=== PATIENT | male | born 1990 | race Caucasian/White ===

== ENCOUNTER 2016-07-11 21:58 | Inpatient (IN) | payer BC, OTHER ==
[~2016-07-11] VITALS: Ht 172.7 cm; Wt 68.0 kg
[2016-07-12] VITALS: BP 105/56
--- NOTE | 2016-07-12 01:25 | NUR ---
ADMISSION NOTE: Patient is a 25 y.o male admitted at [facility] at approximately 0125am of 07/12/16 for medically supervised withdrawal from Opiate. Body search done and skin check performed at intake, no contraband found. Scab noted left hand. No bleeding noted. Pt is 58 tall and weighs 150 lbs in a standing scale. Pt is cooperative during assessment. Patient is oriented to floor unit and room. Patient follows a regular diet at home with no known food and drug allergies. Pt wishes to be full Code. Patient is alert & oriented x4, ambulatory with a steady gait. Speech is clear and audible. Patient appears moderately intoxicated Patient is cooperative during interview. No shortness of breath noted. Respiration even & unlabored. Abdomen soft & non-distended. Bowel sounds active in all four quadrants. No nausea/vomiting noted. Patient denies pain/discomfort. No hand tremors noted. Vitals upon admission: B/P 118/76, OH 97, Temp 98.1, RR 16, O2Sat 96%. Patient noted with past medical history of ADHD and fracture of right arm d/t a baseball injury(Dec 2014). Pt denies any thoughts of suicide in the past. Pt currently denies SI/HI. Pt has not provided urine for drug screen yet. Instructed that pt to remain in room restriction until pt can provide urine. Pt verbalized understanding. Substance use: 1. Heroin- Pt has been using since 20 years old. Pt uses Heroin IV with fentanyl 0.5-1.0 gram daily for 1 week. Last use was a few hours prior to admission 07/11/16 at 1900 at the amount of 0.5 gram. Treatment History: Pt has multiple detox treatment history. Pt unable to recall all of them. Last one was at [facility] in December 2015. Patient denies being hospitalized in the last 30 days. Patient reports his longest period of sobriety was for 15 1/2 months from October 2013 to January 2015. Patient reports symptoms when he does not use as chills, anxiety, goosebumps, sweating, headaches, stuffy nose. Patient smokes 20 cigarettes daily. Patient refused pneumonia vaccines, educated patient risk & benefits but still refused. Patient does not have a PCP. Fall & Seizure precautions are in place. All needs attended & met. Safety precautions are in place. Bed locked in lowest position. Both side rails padded & up. Call light within pt's reach. Informed Dr. Jordan of pts admission. Will continue to monitor patient.
[2016-07-12 01:30] VITALS: BP 118/76
[2016-07-12] MEDS ORDERED: LOPERAMIDE HCL 2 MG CAPSULE PO PRN ×2 (02:00)
[2016-07-12] MEDS ORDERED: DICYCLOMINE HCL 20 MG TABLET PO PRN (02:00)
[2016-07-12] MEDS ORDERED: MAG HYDROX/AL HYDROX/SIMETH 30 ML LIQUID UDC PO PRN (02:00)
[2016-07-12] MEDS ORDERED: ONDANSETRON ODT 4 MG TAB.RAPDIS SL PRN (02:00)
[2016-07-12] MEDS ORDERED: MAGNESIUM HYDROXIDE 30 ML LIQUID UDC PO PRN (02:00)
[2016-07-12] MEDS ORDERED: IBUPROFEN 400 MG TABLET PO PRN (02:00)
[2016-07-12] MEDS ORDERED: ACETAMINOPHEN 325 MG TABLET PO PRN (02:00)
[2016-07-12] MEDS ORDERED: BUPRENORPHINE HCL 2 MG TAB.SUBL SL PRN (02:00)
[2016-07-12 03:16] LABS: ALANINE AMINOTRANSFERASE 16 U/L (16-63); ALKALINE PHOSPHATASE 78 U/L (50-136); ASPARTATE AMINOTRANSFERASE 17 U/L (15-37); BILIRUBIN,TOTAL 0.2 mg/dL (0.2-1.0); CALCIUM 9.2 mg/dL (8.5-10.1); CHLORIDE 102 mmol/L (98-107); CREATININE 1.2 mg/dL (0.6-1.3); GFR 74 mL/min (>60); GLUCOSE 87 mg/dL (74-106); POTASSIUM 3.8 mmol/L (3.5-5.1); SODIUM SERUM 141 mmol/L (136-145); TOTAL PROTEIN, SERUM 7.6 g/dL (6.4-8.2); UREA NITROGEN, BLOOD 20 mg/dL (7-18)
[2016-07-12 03:18] LABS: ETHANOL < 3 MG/DL (0-0)
[2016-07-12 03:38] LABS: CARBON DIOXIDE 34 mmol/L (21-32)
[2016-07-12 03:58] LABS: BASOPHILS # (AUTO) 0.1 K/uL (0.0-0.2); BASOPHILS % (AUTO) 1.1 % (0.0-2.0); EOSINOPHILS % (AUTO) 0.3 % (0.0-7.0); HEMATOCRIT 45.6 % (40.0-50.0); HEMOGLOBIN 14.9 g/dL (14.0-18.0); LYMPHOCYTES # (AUTO) 1.9 K/uL (0.8-4.8); LYMPHOCYTES % (AUTO) 15.1 % (20.5-51.5); MEAN CORPUSCULAR HEMOGLOBIN 29.6 uug (27.0-31.0); MEAN CORPUSCULAR HGB CONC 33 g/dL (32.0-37.0); MEAN CORPUSCULAR VOLUME 90.5 fL (82.0-92.0); MONOCYTES % (AUTO) 8.4 % (0.0-11.0); NEUTROPHILS # (AUTO) 9.4 K/uL (1.8-8.9); NEUTROPHILS % (AUTO) 75.1 % (38.5-71.5); PLATELET COUNT (AUTO) 267 K/uL (150-450); RED BLOOD CELL COUNT(AUTO) 5.04 MIL/uL (4.70-6.10); RED CELL DISTRIBUTION WIDTH 12.1 % (11.5-14.5); WHITE BLOOD COUNT (AUTO) 12.4 K/uL (4.0-11.2)
[2016-07-12 04:00] VITALS: BP 129/67
[2016-07-12] MEDS ORDERED: PROP20TA7 PO (04:52)
[2016-07-12] MEDS ORDERED: GABA800T2 PO (04:52)
[2016-07-12] MEDS ORDERED: LISD30CA3 PO (04:52)
--- NOTE | 2016-07-12 07:08 | NUR ---
END OF SHIFT NOTE: Patient is a 25 y/o male admitted this morning 07/12/16 at 0125am for Opiate dependence. Patient reported using Heroin IV 0.5-1.0 gram daily for 1 week. Patient with medical history of ADHD and past ORIF surgery of right arm d/t a baseball injury(Dec 2015). Patient is on a regular diet with no known food and drug allergies. Full Code status. No history of seizure. Fall precautions noted. Patient noted with scab on left hand. Patient has no taper yet. Initial COWS is 2. No PRN medications given to patient. Patient still not able to provide Urine for drug screen during admission. Will follow-up in Am. Patient is stable and vitals remains WNL. Pt was having trouble sleeping and was not able to sleep at all during my shift. Pt consumed 1500ml of fluids. Pt has not voided yet and no BM. All needs attended & met. Safety precautions are in place. Will endorse pt to day shift nurse.
[2016-07-12 07:26] LABS: HIV-1 p24 ANTIGEN NON REACTIVE (NONREACTIVE); HIV-1/2 ANTIBODY NON REACTIVE (NONREACTIVE)
--- NOTE | 2016-07-12 08:00 | NUR ---
START OF SHIFT Pt 25 y/o male admitted for opiate dependence. Pt received in room on bed with eyes closed resting but easily arousable to name. Pt did not wanted to be disturbed at this time. Respirations even and unlabored. Skin warm and dry to touch. It was reported that pt slept for 1 hour last night. Reminded pt to provide urine for UDS. All supervisor cartography aware. Pt refused vital signs thsi morning. Will come back to reaccess. Bed on lowest position with side rails x2 up for safety. Call light within reach. No distress noted at this time.
[2016-07-12] MEDS ORDERED: TUBERCULIN,PURIF.PROT.DERIV. 5 TU/0.1 ML TEST ID ONE ×2 (09:00)
[2016-07-12] MEDS: MULTIVITAMINS,THERAPEUTIC TABLET PO SCH (09:00)
--- NOTE | 2016-07-12 10:00 | NUR ---
NSG ENTRY Pt observed in room with eyes clsoed resting, but easily arousable to name. Pt reminded of urine collection and made aware. No distress noted at this time. Bed on lowest position with side rails x2 up for safety. Call light within reach. No distress noted at this time.
[2016-07-12 12:00] VITALS: BP 116/52
[2016-07-12 16:00] VITALS: BP 126/82
[2016-07-12] MEDS ORDERED: ASPIRIN/ACETAMINOPHEN/CAFFEINE TABLET PO PRN (17:30)
--- NOTE | 2016-07-12 18:23 | NUR ---
END OF SHIFT Pt 25 y/o male admitted for opiate dependence. Pt alert and orietned to name, place, and time. Perrla. Respirations even and unlabored. Skin warm and dry to touch. Reminded pt to provide urine for UDS throughout the day. All fourdrinier tender aware. Still awaiting for UA. Pt was in bed throughout the day, and when pt got up at dinner time, he urinated in the restroom, but forgot to get staff to have urine collected. Will come back to reaccess. Bed on lowest position with side rails x2 up for safety. Call light within reach. No distress noted at this time.
--- NOTE | 2016-07-12 19:30 | NUR ---
START OF SHIFT NOTE: Patient is a 25 y/o male admitted this morning 07/12/16 at 0125am for Opiate dependence. Patient reported using Heroin IV 0.5-1.0 gram daily for 1 week. Patient with medical history of ADHD and past ORIF surgery of right arm d/t a baseball injury(Dec 2015). Patient is on a regular diet with no known food and drug allergies. Full Code status. No history of seizure. Fall precautions noted. Patient noted with scab on left hand. Patient has no taper yet. PRN medications available for withdrawal symptoms. Patient is alert & oriented x4. No shortness of breath noted. Respiration even & unlabored. Abdomen soft & non-distended. Bowel sounds active in all four quadrants. No nausea/vomiting noted. Patient complains of sweating, chill, stomach cramps, runny nose & anxiety. Patient appears anxious. 6/10 body aches noted. Patient also noted with piloerection of the skin. Pateint is stable. Last COWS is 4. Pt was given PRN Excedrin for headache during day shift. Pt ahs been sleeping during the day. All needs attended. Safety precautions are in place. Bed locked in lowest position. Both side rails up. Call light within pt's reach. Will continue to monitor patient.
[2016-07-12 20:00] VITALS: BP 108/70
[2016-07-12] MEDS: CLONIDINE HCL 0.1 MG TABLET PO PRN (20:09)
[2016-07-12] MEDS: diphenhydrAMINE 50 MG CAPSULE PO PRN (20:09)
[2016-07-12] MEDS: METHOCARBAMOL 750 MG TABLET PO PRN (20:09)
[2016-07-12] MEDS: HYDROXYZINE PAMOATE 25 MG CAPSULE PO PRN (20:09)
--- NOTE | 2016-07-12 20:09 | NUR ---
PRN administered Patient complains of sweating, chills, 6/10 body aches & anxiety. Patient appears anxious and restless. Pt also requested for medication to help him sleep. PRN Clonidine, Vistaril, Robaxin & Benadryl given as ordered. will reassess for effectiveness of medication
[2016-07-12 20:41] LABS: *AMPHETAMINE, URINE NEGATIVE (NEGATIVE); *BARBITURATE, URINE NEGATIVE (NEGATIVE); *CANNABINOID, URINE NEGATIVE (NEGATIVE); *COCCAINE, URINE NEGATIVE (NEGATIVE); *OPIATE, URINE POSITIVE (NEGATIVE); *PHENCYCLIDINE SCREEN,URINE NEGATIVE (NEGATIVE)
--- NOTE | 2016-07-12 21:09 | NUR ---
PRN Reassessment PRN medication effective. Patient verbalized relief. Pt shows no s/s of distress. No shortness of breath noted. Respiration even & unlabored. Will continue to monitor patient.
[2016-07-13] VITALS: BP 105/56
--- NOTE | 2016-07-13 04:00 | NUR ---
Vitals/Cows deferred Patient refused vitals at this time. Patient asleep in bed and appears comfortable. No s/s of distress noted. respiration even & unlabored. Safety precautions are in place. Will continue to monitor patient.
--- NOTE | 2016-07-13 07:19 | NUR ---
END OF SHIFT NOTE: Patient is a 25 y/o male admitted this morning 07/12/16 at 0125am for Opiate dependence. Patient reported using Heroin IV 0.5-1.0 gram daily for 1 week. Patient with medical history of ADHD and past ORIF surgery of right arm d/t a baseball injury(Dec 2015). Patient is on a regular diet with no known food and drug allergies. Full Code status. No history of seizure. Fall precautions noted. Patient noted with scab on left hand. Patient has no taper yet. Last COWS is 10. Pt was given PRN Robaxin, Vistaril, Benadryl & Clonidine and were effective. Patient remained stable and vitals remains WNL. Pt slept for 9 hours. Patient consumed 550 ml of fluids. Pt voided 1x and no BM. All needs attended & met. Safety precautions are in place. Will endorse pt to day shift nurse.
[2016-07-13 08:07] VITALS: BP 122/65
--- NOTE | 2016-07-13 08:45 | NUR ---
START OF SHIFT/COWS DEFERRED ATTEMPTED TO ASSESS PT AND PT WOULD NOT OPEN EYES AND STATED HE JUST WANTED TO SLEEP. PT REFUSED ASSESSMENT. PT AWOKE TO TAKE MULTIVITAMIN BUT CLOSED EYES AND WENT RIGHT BACK TO SLEEP. NO EYE CONTACT MADE. PT REFUSED TO ANSWER ANY ASSESSMENT QUESTIONS. COWS DEFERRED. PT IN STABLE CONDITION WITH RR EVEN AND UNLABORED. BED IN LOWEST POSITION WITH CALL PAYNE IN REACH. WILL ATTEMPT TO ASSESS PT AGAIN LATER THIS AM.
[2016-07-13] MEDS ORDERED: TUBERCULIN,PURIF.PROT.DERIV. 5 TU/0.1 ML TEST ID ONE (09:00)
[2016-07-13] MEDS: MULTIVITAMINS,THERAPEUTIC TABLET PO SCH (09:33)
--- NOTE | 2016-07-13 11:25 | NUR ---
PRN MEDS PRN CLONIDINE, VISTARIL, ROBAXIN GIVEN FOR NEW ONSET BODY ACHES, ANXIETY, AND CHILLS. WILL MONITOR EFFECTIVENESS.
[2016-07-13] MEDS: METHOCARBAMOL 750 MG TABLET PO PRN ×2 (11:26→21:26)
[2016-07-13] MEDS: HYDROXYZINE PAMOATE 25 MG CAPSULE PO PRN ×2 (11:26→21:25)
[2016-07-13] MEDS: CLONIDINE HCL 0.1 MG TABLET PO PRN (11:27)
--- NOTE | 2016-07-13 11:59 | NUR ---
PRN MEDS MILDLY EFFECTIVE. PT STATES HE FEELS A LITTLE BETTER. WILL CONTINUE TO MONITOR
[2016-07-13 12:00] VITALS: BP 106/71
[2016-07-13] MEDS ORDERED: PROP20TA7 PO (14:53)
[2016-07-13] MEDS ORDERED: GABA800T2 PO (14:53)
[2016-07-13] MEDS ORDERED: LISD30CA3 PO (14:53)
[2016-07-13 16:00] VITALS: BP 103/58
--- NOTE | 2016-07-13 16:55 | NUR ---
COWS DEFERRED. PT SLEEPING IN BED. RR EVEN AND UNLABORED. BED IN LOWEST POSITION WITH CALL PAYNE IN REACH.
[2016-07-13] MEDS ORDERED: Medication Not On Formulary EA (Gabapentin 1 TAB) PO SCH (18:30)
--- NOTE | 2016-07-13 18:50 | NUR ---
END OF SHIFT PT CONTINUES ON OBSERVATION. PRN CLONIDINE, VISTARIL, AND ROBAXIN GIVEN TO PT FOR S/S OF W/D WITH EFFECTIVENESS. LAST COWS 6. PT RESTING IN BED MOST OF DAY AND STATES HE IS FEELING FATIGUED AND ANXIOUS. ENCOURAGED PT TO INFORM NURSING STAFF PRNS ARE AVAILABLE FOR S/S OF W/D. PT CURRENTLY SLEEPING WITH RR EVEN AND UNLABORED. BED IN LOWEST POSITION WITH CALL PAYNE IN REACH. ALL NEEDS MET. WILL PASS REPORT TO ONCOMING NURSE.
[2016-07-13] MEDS: GABAPENTIN 400 MG CAPSULE PO SCH (19:01)
--- NOTE | 2016-07-13 19:25 | NUR ---
START OF SHIFT NOTE Pt is 25 y/o male admitted for Heroin dependence(1 week relapse) . Pt has NKA but reported a PMH of ADHD, right arm fracture d/t baseball injury(ORIF sx). Per day shift nurse pt is not on a scheduled taper at this time, but has PRN medications available for any discomfort. Pt received Robaxin 750 mg PO PRN and Vistaril 50 mg PO PRN during the day shift. Last COW: 6 (1600). At this time pt is calm, cooperative, and compliant with plan of care. Pt denies any pain/discomfort at this time. Pt is encouraged to notify staff of any changes in condition or of any concerns. Pt verbalized an understanding. All safety measures in place; side rails up x2, bed locked and in low position, and call light within reach. Will continue to monitor.
[2016-07-13 20:00] VITALS: BP 106/64
--- NOTE | 2016-07-13 21:25 | NUR ---
ROBAXIN, VISTARIL, AND BENADRYL PRN ADMINISTRATION Pt stated " Can I get some more Vistaril and Robaxin. My muscle pain is coming back and I'm a little anxious. Can I have something for sleep too?" Robaxin 750 mg PO PRN, Vistaril 50 mg PO PRN , and Benadryl 50 mg PO PRN was given. Pt was encouraged to notify staff of any changes in condition or of any concerns. Pt verbalized an understanding. All safety measures in place. Will monitor for effectiveness.
[2016-07-13] MEDS: diphenhydrAMINE 50 MG CAPSULE PO PRN (21:26)
--- NOTE | 2016-07-13 22:30 | NUR ---
ROBAXIN, VISTARIL, AND BENADRYL PRN REASSESSMENT Pt is asleep in bed with no signs of discomfort/distress noted. Pt's breathing is even and unlabored. Respirations are 16 breaths per minute. PRNs effective. All safety measures in place. Will continue to monitor.
--- NOTE | 2016-07-14 | NUR ---
COW AND VITALS REFUSED. Pt refused to be assessed and have vitals taken at this time. Pt was encouraged x 3 with risks and benefits explained, but the pt still declined. All safety measures in place. Will continue to monitor. Addendum: 07/14/16 at 0544 by DANIEL HENDRICKS LVN Amended: Links added.
--- NOTE | 2016-07-14 04:00 | NUR ---
COW AND VITALS REFUSED Pt refused to be assessed and have vitals taken at this time. Pt was encouraged x 3 with risks and benefits explained, but the pt still declined. All safety measures in place. Will continue to monitor. Addendum: 07/14/16 at 0547 by DANIEL HENDRICKS LVN Amended: Links added.
--- NOTE | 2016-07-14 07:04 | NUR ---
END OF SHIFT NOTE Pt is 25 y/o male admitted for Heroin dependence(1 week relapse) . Pt has NKA but reported a PMH of ADHD, right arm fracture d/t baseball injury(ORIF sx). Pt is not on a scheduled taper at this time, but has PRN medications available for any discomfort. Pt received Robaxin 750 mg PO PRN, Vistaril 50 mg PO PRN, and Benadryl 50 mg PO PRN during the shift. Pt slept for a total of 8 hours. Last COW: 5 (1999). All safety measures in place; side rails up x2, bed locked and in low position, and call light within reach. Endorsed to the oncoming nurse.
[2016-07-14 08:00] VITALS: BP 103/64
--- NOTE | 2016-07-14 08:00 | NUR ---
START OF SHIFT: RECEIVED PT WITH GUARDED AFFECT ANXIOUS MOOD. HE REPORTS MUSCLE ACHES,RESTLESSNESS,ANXIETY AND IRRITABILITY AND WANTS TOP LEAVE. MEDICATED PT WITH PRN CLONIDINE , ROBAXIN, AND VISTARIL AND ASKED HIM TO STAY. INCLUDED THERAPIST AND OTHER STAFF MEMBERS TO INTERVENE. WILL MONITOR EFFECTIVENESS OF INTERVENTION AND PRN MEDS. WILL CONTINUE TO PROVIDE SAFE AND SUPPORTIVE ENVIRONMENT.
[2016-07-14] MEDS: GABAPENTIN 400 MG CAPSULE PO SCH (08:56)
[2016-07-14] MEDS: HYDROXYZINE PAMOATE 25 MG CAPSULE PO PRN (08:56)
[2016-07-14] MEDS: MULTIVITAMINS,THERAPEUTIC TABLET PO SCH (08:56)
[2016-07-14 08:57] VITALS: BP 103/64
[2016-07-14] MEDS: METHOCARBAMOL 750 MG TABLET PO PRN (08:57)
[2016-07-14] MEDS: CLONIDINE HCL 0.1 MG TABLET PO PRN (08:57)
--- NOTE | 2016-07-14 11:15 | NUR ---
DISCHARGE AMA: PT WAS DETERMINED TO LEAVE AMA DESPITE INTERVENTION BY MULTIPLE STAFF MEMBERS. PT EXPRESSED VERBAL UNDERSTANDING THAT HE WAS LEAVING WITHOUT MEDICAL CLEARANCE FROM MD. HE DENIED S/I AND H/I. A RESOURCE LIST WAS GIVEN TO PT. HVAC OPERATIONS TECHNICIAN ESCORTED PT OUT OF UNIT AT 1111.
[2016-07-15 03:09] LABS: HEPATITIS B CORE AB, IgM Negative (Negative); HEPATITIS B SURFACE AG Negative (Negative)
== END 2016-07-14 11:11 | disposition left against medical advice (07) | DRG 894 ==
LOC: SRC 07-12 00:53
PROVIDERS: ADMIT Internal Medicine; ATTEND Internal Medicine
PROC: HZ2ZZZZ Detoxification Services for Substance Abuse Treatment (ICD-10-PCS; principal; 2016-07-12)
PROC: HZ31ZZZ Individual Counseling for Substance Abuse Treatment, Behavioral (ICD-10-PCS; 2016-07-14)
DX: F11.23 Opioid dependence with withdrawal (principal); Z59.0 Homelessness; F17.210 Nicotine dependence, cigarettes, uncomplicated; F90.9 Attention-deficit hyperactivity disorder, unspecified type
CPT/HCPCS: 36415; 80307; 80361; 83735; 85025; 86705; 87340; 87806; A4663; G6040-TC; Q0163

== ENCOUNTER 2017-04-17 20:49 | Inpatient (IN) | payer BC, OTHER ==
[~2017-04-17] VITALS: Ht 170.2 cm; Wt 63.5 kg
[~2017-04-17 20:49] MED LIST: GABA800T2 PO; LISD30CA2 PO; PROP20TA7 PO
[2017-04-17] MEDS ORDERED: MAGNESIUM HYDROXIDE 30 ML LIQUID UDC PO PRN (21:45)
[2017-04-17] MEDS ORDERED: METHOCARBAMOL 750 MG TABLET PO PRN (21:45)
[2017-04-17] MEDS ORDERED: MAG HYDROX/AL HYDROX/SIMETH 30 ML LIQUID UDC PO PRN (21:45)
[2017-04-17] MEDS ORDERED: MIRALAX 17 GM POWD.PACK PO PRN (21:45)
[2017-04-17] MEDS ORDERED: diphenhydrAMINE 50 MG CAPSULE PO PRN (21:45)
[2017-04-17] MEDS ORDERED: ACETAMINOPHEN 325 MG TABLET PO PRN (21:45)
[2017-04-17] MEDS ORDERED: LOPERAMIDE HCL 2 MG CAPSULE PO PRN ×2 (21:45)
[2017-04-17] MEDS ORDERED: ONDANSETRON 4 MG/2 ML VIAL IM PRN (21:45)
[2017-04-17] MEDS ORDERED: BUPRENORPHINE HCL 2 MG TAB.SUBL SL PRN (21:45)
[2017-04-17] MEDS ORDERED: ONDANSETRON ODT 4 MG TAB.RAPDIS SL PRN (21:45)
[2017-04-17] MEDS ORDERED: LORAZEPAM 2 MG/1 ML VIAL IM PRN (23:45)
[2017-04-17] MEDS ORDERED: DIAZEPAM 10 MG TABLET PO PRN ×2 (23:45)
[2017-04-17] MEDS ORDERED: DIAZEPAM 5 MG TABLET PO PRN (23:45)
[2017-04-17] MEDS: IBUPROFEN 600 MG TABLET PO PRN (23:59)
[2017-04-18] VITALS: BP 115/66
[2017-04-18] MEDS ORDERED: DIAZEPAM 5 MG TABLET ONE (00:02)
[2017-04-18] MEDS ORDERED: ONDANSETRON ODT 4 MG TAB.RAPDIS ONE (00:03)
[2017-04-18] MEDS ORDERED: IBUPROFEN 600 MG TABLET ONE (00:03)
[2017-04-18 01:03] LABS: *AMPHETAMINE, URINE NEGATIVE (NEGATIVE); *BARBITURATE, URINE NEGATIVE (NEGATIVE); *CANNABINOID, URINE POSITIVE (NEGATIVE); *COCCAINE, URINE NEGATIVE (NEGATIVE); *OPIATE, URINE POSITIVE (NEGATIVE); *PHENCYCLIDINE SCREEN,URINE NEGATIVE (NEGATIVE)
[2017-04-18 04:00] VITALS: BP 121/76
[2017-04-18 08:00] VITALS: BP 128/70
[2017-04-18 08:45] LABS: BASOPHILS % (AUTO) 0.4 % (0.0-2.0); EOSINOPHILS # (AUTO) 0.2 K/uL (0.0-0.7); EOSINOPHILS % (AUTO) 2.8 % (0.0-7.0); HEMATOCRIT 40.6 % (36.7-47.1); HEMOGLOBIN 13.9 g/dL (12.5-16.3); LYMPHOCYTES # (AUTO) 2.4 K/uL (20.0-40.0); LYMPHOCYTES % (AUTO) 33.6 % (20.5-51.5); MEAN CORPUSCULAR HEMOGLOBIN 31.2 uug (23.8-33.4); MEAN CORPUSCULAR HGB CONC 34 g/dL (32.5-36.3); MEAN CORPUSCULAR VOLUME 91.2 fL (73.0-96.2); MONOCYTES # (AUTO) 0.7 K/uL (2.0-10.0); MONOCYTES % (AUTO) 9.8 % (0.0-11.0); NEUTROPHILS # (AUTO) 3.9 K/uL (1.8-8.9); NEUTROPHILS % (AUTO) 53.4 % (38.5-71.5); PLATELET COUNT (AUTO) 249 K/uL (152-348); RED BLOOD CELL COUNT(AUTO) 4.46 MIL/uL (4.06-5.63); WHITE BLOOD COUNT (AUTO) 7.2 K/uL (3.6-10.2)
[2017-04-18 08:55] LABS: ETHANOL < 3 MG/DL (0-0)
[2017-04-18] MEDS ORDERED: TUBERCULIN,PURIF.PROT.DERIV. 5 TU/0.1 ML TEST ID ONE (09:00)
[2017-04-18] MEDS: BUPRENORPHINE HCL 2 MG TAB.SUBL SL SCH ×4 (09:00→21:00)
[2017-04-18 09:02] LABS: ALANINE AMINOTRANSFERASE 97 U/L (16-63); ALKALINE PHOSPHATASE 79 U/L (50-136); ASPARTATE AMINOTRANSFERASE 37 U/L (15-37); BILIRUBIN,TOTAL 0.3 mg/dL (0.2-1.0); CARBON DIOXIDE 31 mmol/L (21-32); CHLORIDE 105 mmol/L (98-107); GLUCOSE 94 mg/dL (74-106); MAGNESIUM 1.9 mg/dL (1.8-2.4); POTASSIUM 4.1 mmol/L (3.5-5.1); TOTAL PROTEIN, SERUM 6.8 g/dL (6.4-8.2); UREA NITROGEN, BLOOD 10 mg/dL (7-18)
[2017-04-18] MEDS: DIAZEPAM 10 MG TABLET PO SCH ×4 (09:25→20:54)
[2017-04-18] MEDS: GABAPENTIN 400 MG CAPSULE PO SCH ×4 (09:25→20:54)
[2017-04-18] MEDS: SULFAMETH/TRIMETH 800/160 MG TABLET PO SCH ×2 (09:25→20:53)
[2017-04-18 12:00] VITALS: BP 120/75
[2017-04-18 16:00] VITALS: BP 110/72
[2017-04-18 20:00] VITALS: BP 116/66
[2017-04-18] MEDS: IBUPROFEN 600 MG TABLET PO PRN (20:54)
[2017-04-19] VITALS: BP 101/56
[2017-04-19 04:00] VITALS: BP 98/61
[2017-04-19] MEDS: GABAPENTIN 400 MG CAPSULE PO SCH ×4 (08:01→20:17)
[2017-04-19] MEDS: BUPRENORPHINE HCL 2 MG TAB.SUBL SL SCH ×3 (08:02→21:00)
[2017-04-19] MEDS: DIAZEPAM 10 MG TABLET PO SCH ×3 (08:02→20:18)
[2017-04-19] MEDS: SULFAMETH/TRIMETH 800/160 MG TABLET PO SCH ×2 (08:02→20:18)
[2017-04-19 08:07] VITALS: BP 112/61
[2017-04-19 10:10] LABS: HEPATITIS B SURFACE AG Negative (Negative)
[2017-04-19] MEDS ORDERED: KETOROLAC TROMETHAMINE 30 MG INJ IM PRN (11:45)
[2017-04-19] MEDS: CLONIDINE HCL 0.1 MG TABLET PO PRN ×2 (12:09→18:21)
[2017-04-19] MEDS ORDERED: BUPRENORPHINE HCL 2 MG TAB.SUBL SL ONE ×2 (14:30→21:15)
[2017-04-19 15:31] VITALS: BP 108/67
[2017-04-19 17:37] VITALS: BP 100/60
[2017-04-19 20:00] VITALS: BP 102/62
[2017-04-19] MEDS: BACLOFEN 10 MG TABLET PO SCH (20:17)
[2017-04-19] MEDS: CLONIDINE HCL 0.1 MG TABLET PO SCH (20:20)
[2017-04-19] MEDS: DOXEPIN 100 MG CAPSULE PO PRN (23:26)
[2017-04-20] VITALS: BP 90/43
[2017-04-20 04:00] VITALS: BP 90/51
[2017-04-20 08:00] VITALS: BP 98/52
[2017-04-20] MEDS: CLONIDINE HCL 0.1 MG TABLET PO SCH ×2 (09:00→20:42)
[2017-04-20] MEDS ORDERED: BUPRENORPHINE HCL 2 MG TAB.SUBL SL SCH (09:00)
[2017-04-20] MEDS: DIAZEPAM 5 MG TABLET PO SCH ×4 (09:16→20:42)
[2017-04-20] MEDS: GABAPENTIN 400 MG CAPSULE PO SCH ×4 (09:16→20:42)
[2017-04-20] MEDS: SULFAMETH/TRIMETH 800/160 MG TABLET PO SCH ×2 (09:16→20:42)
[2017-04-20] MEDS: BACLOFEN 10 MG TABLET PO SCH ×3 (09:17→20:41)
[2017-04-20 12:00] VITALS: BP 110/62
[2017-04-20] MEDS: CLONIDINE HCL 0.1 MG TABLET PO PRN (12:59)
[2017-04-20 16:00] VITALS: BP 107/64
[2017-04-20] MEDS: BUPRENORPHINE HCL 2 MG TAB.SUBL SL SCH ×2 (16:56→20:42)
[2017-04-20] MEDS ORDERED: LIDOCAINE 1%-EPI 1:100,000 20 ML VIAL TP ONE (19:15)
[2017-04-20] MEDS ORDERED: LIDOCAINE 1% 30 ML VIAL INJ ONE (19:30)
[2017-04-20 20:00] VITALS: BP 118/78
[2017-04-21] VITALS: BP 90/42
[2017-04-21 08:35] VITALS: BP 112/65
[2017-04-21] MEDS: SULFAMETH/TRIMETH 800/160 MG TABLET PO SCH ×2 (08:53→20:33)
[2017-04-21] MEDS: BUPRENORPHINE HCL 2 MG TAB.SUBL SL SCH ×3 (08:54→20:34)
[2017-04-21] MEDS: DIAZEPAM 5 MG TABLET PO SCH ×3 (08:54→20:33)
[2017-04-21] MEDS: BACLOFEN 10 MG TABLET PO SCH ×3 (08:54→20:33)
[2017-04-21] MEDS: GABAPENTIN 400 MG CAPSULE PO SCH ×4 (08:54→20:33)
[2017-04-21] MEDS: CLONIDINE HCL 0.1 MG TABLET PO SCH ×2 (08:54→20:33)
[2017-04-21] MEDS ORDERED: DIAZEPAM 5 MG TABLET PO ONE (12:00)
[2017-04-21 12:20] VITALS: BP 113/71
[2017-04-21] MEDS: CLONIDINE HCL 0.1 MG TABLET PO PRN (14:30)
[2017-04-21 16:50] VITALS: BP 89/49
[2017-04-21 20:10] VITALS: BP 122/78
[2017-04-21] MEDS: DOXEPIN 100 MG CAPSULE PO PRN (23:09)
[2017-04-22 00:45] VITALS: BP 127/79
[2017-04-22 04:07] VITALS: BP 116/72
[2017-04-22 08:36] VITALS: BP 96/60
[2017-04-22] MEDS: BACLOFEN 10 MG TABLET PO SCH ×3 (09:44→20:21)
[2017-04-22] MEDS: GABAPENTIN 400 MG CAPSULE PO SCH ×4 (09:44→20:21)
[2017-04-22] MEDS: CLONIDINE HCL 0.1 MG TABLET PO SCH ×2 (09:44→20:21)
[2017-04-22] MEDS: SULFAMETH/TRIMETH 800/160 MG TABLET PO SCH ×2 (09:44→20:21)
[2017-04-22] MEDS: DIAZEPAM 5 MG TABLET PO SCH ×2 (09:44→20:21)
[2017-04-22] MEDS: BUPRENORPHINE HCL 2 MG TAB.SUBL SL SCH ×2 (09:45→20:21)
[2017-04-22 12:28] VITALS: BP 112/61
[2017-04-22] MEDS: CLONIDINE HCL 0.1 MG TABLET PO PRN (15:23)
[2017-04-22 16:37] VITALS: BP 91/55
[2017-04-22 20:20] VITALS: BP 112/72
[2017-04-22] MEDS: DOXEPIN 100 MG CAPSULE PO PRN (23:12)
[2017-04-23 00:51] VITALS: BP 127/79
[2017-04-23 04:40] VITALS: BP 115/71
[2017-04-23 08:56] VITALS: BP 92/54
[2017-04-23] MEDS ORDERED: DIAZEPAM 5 MG TABLET PO SCH (09:00)
[2017-04-23] MEDS: CLONIDINE HCL 0.1 MG TABLET PO SCH (09:00)
[2017-04-23] MEDS ORDERED: BUPRENORPHINE HCL 2 MG TAB.SUBL SL SCH (09:00)
[2017-04-23] MEDS: BACLOFEN 10 MG TABLET PO SCH (09:05)
[2017-04-23] MEDS: GABAPENTIN 400 MG CAPSULE PO SCH ×2 (09:05→13:23)
[2017-04-23] MEDS: CLONIDINE HCL 0.1 MG TABLET PO PRN (10:25)
[2017-04-23 12:43] VITALS: BP 112/71
== END 2017-04-23 15:33 | disposition left against medical advice (07) | DRG 894 ==
LOC: SRC 20:49
PROVIDERS: ADMIT Internal Medicine; ATTEND Internal Medicine
PROC: HZ2ZZZZ Detoxification Services for Substance Abuse Treatment (ICD-10-PCS; principal; 2017-04-17)
PROC: HZ31ZZZ Individual Counseling for Substance Abuse Treatment, Behavioral (ICD-10-PCS; 2017-04-20)
PROC: 0H9BXZZ Drainage of Right Upper Arm Skin, External Approach (ICD-10-PCS; 2017-04-20)
PROC: HZ41ZZZ Group Counseling for Substance Abuse Treatment, Behavioral (ICD-10-PCS; 2017-04-21)
DX: F13.230 Sedative, hypnotic or anxiolytic dependence with withdrawal, uncomplicated (principal); B19.20 Unspecified viral hepatitis C without hepatic coma; L02.413 Cutaneous abscess of right upper limb; F17.210 Nicotine dependence, cigarettes, uncomplicated; F11.23 Opioid dependence with withdrawal; S41.141S Puncture wound with foreign body of right upper arm, sequela; X78.8XXS Intentional self-harm by other sharp object, sequela; Z81.1 Family history of alcohol abuse and dependence; Z91.89 Other specified personal risk factors, not elsewhere classified; F41.9 Anxiety disorder, unspecified; F90.9 Attention-deficit hyperactivity disorder, unspecified type; G44.009 Cluster headache syndrome, unspecified, not intractable
CPT/HCPCS: 36415; 70030-TC; 80307; 80346; 80349; 80361; 83735; 85025; 86592; 86705; 86803; 87070; 87077; 87340; 87806; A4663; G0480; J1885; J2001; J3490; J8499; Q0162

== ENCOUNTER 2017-05-10 14:16 | Inpatient (IN) | payer BC, OTHER ==
[~2017-05-10] VITALS: Ht 172.7 cm; Wt 61.7 kg
[~2017-05-10 14:16] MED LIST changes: -GABA800T2 PO; -LISD30CA2 PO
--- NOTE | 2017-05-10 20:35 | NUR ---
Pre admission note Pt seen in intake office. Pt appears intoxicated upon admission. V/S WNL. No s/s of distress noted at this time. Respirations even and unlabored. Policies on medication disposal explained to and understood by patient. Will admit Pt to unit. Will continue to monitor.
--- NOTE | 2017-05-10 21:05 | NUR ---
Admission note Pt is a 26 yo male, A+Ox4, presenting to [facility] for Opiate/Benzo dependence. Pt has NKA, is on Full code status, and on Regular diet. Pt is 5'8" in height and 136 LBS in weight. Pt is on Fall and Seizure precautions. Pt has HX of Left arm SX, right Fore arm I&D to abscess, and insomnia. Pt has family HX of substance abuse from brother. Pt has no primary care provider. Pt has been using Heroin IV for 7 years (2 weeks currently), has reached a level of 1gm/daily, and last dose was 0.25gm on 05-10-17 @1200. Pt has been taking Xanax PO for 9 years (2weeks currently), has reached a level of 6mg-8mg/daily, and last dose was 2mg on 05-10-17 @0200. Pt has been taking Doxepin 100mg HS PRN as a home medication but has not taken any doses for the past 2 weeks. Pt's most recent detox/Rehab was for 7 days @ [facility] in 04/2017. Pt continued sobriety for 7 additional days. This was the pt's last time sober. Pt has been a cigarette smoker for 9 years and has reached a level of 20/daily. Pt appears intoxicated upon admission. V/S WNL. No s/s of distress noted at this time. Respirations even and unlabored. Will continue to monitor.
[2017-05-10] MEDS ORDERED: MIRALAX 17 GM POWD.PACK PO PRN (21:30)
[2017-05-10] MEDS ORDERED: METHOCARBAMOL 750 MG TABLET PO PRN (21:30)
[2017-05-10] MEDS ORDERED: ACETAMINOPHEN 325 MG TABLET PO PRN (21:30)
[2017-05-10] MEDS ORDERED: DICYCLOMINE HCL 20 MG TABLET PO PRN (21:30)
[2017-05-10] MEDS ORDERED: NICOTINE POLACRILEX 4 MG GUM-PK OF TEN BC PRN (21:30)
[2017-05-10] MEDS ORDERED: NICOTINE 14 MG/24HR PATCH TD PRN (21:30)
[2017-05-10] MEDS ORDERED: LOPERAMIDE HCL 2 MG CAPSULE PO PRN ×2 (21:30)
[2017-05-10] MEDS ORDERED: ONDANSETRON 4 MG/2 ML VIAL IM PRN (21:30)
[2017-05-10] MEDS ORDERED: diphenhydrAMINE 50 MG CAPSULE PO PRN (21:30)
[2017-05-10] MEDS ORDERED: MAG HYDROX/AL HYDROX/SIMETH 30 ML LIQUID UDC PO PRN (21:30)
[2017-05-10] MEDS ORDERED: DOCUSATE SODIUM 250 MG CAPSULE PO PRN (21:30)
[2017-05-10] MEDS ORDERED: BUPRENORPHINE HCL 2 MG TAB.SUBL SL PRN (21:30)
[2017-05-10] MEDS ORDERED: ONDANSETRON ODT 4 MG TAB.RAPDIS SL PRN (21:30)
[2017-05-10] MEDS ORDERED: IBUPROFEN 600 MG TABLET PO PRN (21:30)
[2017-05-10] MEDS ORDERED: MAGNESIUM HYDROXIDE 30 ML LIQUID UDC PO PRN (21:30)
[2017-05-10 22:10] VITALS: BP 113/72
[2017-05-10] MEDS ORDERED: DIAZEPAM 10 MG TABLET PO SCH (22:30)
[2017-05-10 22:59] LABS: BASOPHILS % (AUTO) 0.5 % (0.0-2.0); EOSINOPHILS # (AUTO) 0.1 K/uL (0.0-0.7); EOSINOPHILS % (AUTO) 1.4 % (0.0-7.0); HEMATOCRIT 42.5 % (36.7-47.1); HEMOGLOBIN 14.6 g/dL (12.5-16.3); LYMPHOCYTES # (AUTO) 2.2 K/uL (20.0-40.0); MEAN CORPUSCULAR HEMOGLOBIN 30.8 uug (23.8-33.4); MEAN CORPUSCULAR HGB CONC 34 g/dL (32.5-36.3); MEAN CORPUSCULAR VOLUME 89.7 fL (73.0-96.2); MONOCYTES # (AUTO) 0.5 K/uL (2.0-10.0); MONOCYTES % (AUTO) 6.1 % (0.0-11.0); NEUTROPHILS # (AUTO) 5.4 K/uL (1.8-8.9); PLATELET COUNT (AUTO) 266 K/uL (152-348); RED BLOOD CELL COUNT(AUTO) 4.73 MIL/uL (4.06-5.63); WHITE BLOOD COUNT (AUTO) 8.3 K/uL (3.6-10.2)
[2017-05-10 23:06] LABS: *AMPHETAMINE, URINE NEGATIVE (NEGATIVE); *BARBITURATE, URINE NEGATIVE (NEGATIVE); *CANNABINOID, URINE POSITIVE (NEGATIVE); *COCCAINE, URINE NEGATIVE (NEGATIVE); *OPIATE, URINE POSITIVE (NEGATIVE); *PHENCYCLIDINE SCREEN,URINE NEGATIVE (NEGATIVE)
[2017-05-10] MEDS ORDERED: DIAZEPAM 10 MG TABLET ONE (23:06)
[2017-05-10 23:10] LABS: ETHANOL < 3 MG/DL (0-0)
[2017-05-10 23:14] LABS: ALANINE AMINOTRANSFERASE 60 U/L (16-63); ALKALINE PHOSPHATASE 76 U/L (50-136); ASPARTATE AMINOTRANSFERASE 22 U/L (15-37); BILIRUBIN,TOTAL 0.2 mg/dL (0.2-1.0); CARBON DIOXIDE 28 mmol/L (21-32); CHLORIDE 100 mmol/L (98-107); CREATININE 0.9 mg/dL (0.6-1.3); GLUCOSE 117 mg/dL (74-106); MAGNESIUM 2.1 mg/dL (1.8-2.4); POTASSIUM 3.8 mmol/L (3.5-5.1); TOTAL PROTEIN, SERUM 8.1 g/dL (6.4-8.2); UREA NITROGEN, BLOOD 11 mg/dL (7-18)
[2017-05-10] MEDS ORDERED: DOXE50CA4 PO (23:19)
[2017-05-11 00:37] VITALS: BP 102/56
[2017-05-11 04:43] VITALS: BP 115/61
--- NOTE | 2017-05-11 07:00 | NUR ---
End of shift note Pt is a 26 yo male, A+Ox4, presenting to [facility] for Opiate/Benzo dependence. Pt has NKA, is on Full code status, and on Regular diet. Pt is on Fall and Seizure precautions. Pt has HX of Left arm SX, right Forearm I&D to abscess, and insomnia. Pt is on 5 day Valium and 5 day Subutex tapers to start today. No PRNs given. Pt slept for a total of 7 HRS. Last COWS: 4 and Last CIWA: 3 @0400. No s/s of distress noted at this time. Respirations even and unlabored. Will endorse to day shift nurse.
--- NOTE | 2017-05-11 07:51 | NUR ---
Start of shift note; Received report from night nurse. Patient is a 26 year old male admitted on05/10/17 to detoxify from Opiate and Benzodiazepine. Patient to start 5 day Subutex and 5 day Valium taper today depending on withdrawal symptoms. Patient reported history of Left arm surgery and right forearm I&D, insomnia. Patient slept for 7 hours. Last COWS is 4 and last CIWA is 3 per endorsement. All safety measures secured. Will continue to monitor patient.
[2017-05-11 08:00] VITALS: BP 110/68
[2017-05-11] MEDS: DIAZEPAM 10 MG TABLET PO SCH ×4 (08:59→21:10)
[2017-05-11] MEDS: GABAPENTIN 400 MG CAPSULE PO SCH ×4 (08:59→21:10)
[2017-05-11] MEDS ORDERED: TUBERCULIN,PURIF.PROT.DERIV. 5 TU/0.1 ML TEST ID ONE (09:00)
[2017-05-11] MEDS: BUPRENORPHINE HCL 2 MG TAB.SUBL SL SCH ×3 (09:00→21:00)
[2017-05-11 12:00] VITALS: BP 107/69
[2017-05-11 16:00] VITALS: BP 103/55
--- NOTE | 2017-05-11 17:25 | NUR ---
prompted to attend group today.
--- NOTE | 2017-05-11 18:50 | NUR ---
End of shift note; Patient is AOX4. Patient remained compliant with treatment plan and medication regime. Medications noted to be effective in reducing withdrawal symptoms. Patient participated in group activities and therapies. Patient's last COWS is 8 and last CIWA score is 5 at 1600. All safety measures secured. Met all needs.
--- NOTE | 2017-05-11 19:11 | NUR ---
Start of shift note Pt is a 26 yo male, A+Ox4, presenting to [facility] for Opiate/Benzo dependence. Pt has NKA, is on Full code status, and on Regular diet. Pt is on Fall and Seizure precautions. Pt has HX of Left arm SX, right Forearm I&D to abscess, and insomnia. Pt is on 5 day Valium and 5 day Subutex tapers, tolerated well. Pt expresses feelings of mild Anxiety. No s/s of distress noted at this time. Respirations even and unlabored. Will continue to monitor.
[2017-05-11 20:30] VITALS: BP 111/71
[2017-05-11] MEDS: DOXEPIN 50 MG CAPSULE PO SCH (22:45)
[2017-05-12 00:21] VITALS: BP 107/64
[2017-05-12 04:38] VITALS: BP 110/67
--- NOTE | 2017-05-12 07:00 | NUR ---
End of shift note Pt is a 26 yo male, A+Ox4, presenting to [facility] for Opiate/Benzo dependence. Pt has NKA, is on Full code status, and on Regular diet. Pt is on Fall and Seizure precautions. Pt has HX of Left arm SX, right Forearm I&D to abscess, and insomnia. Pt is on 5 day Valium and 5 day Subutex tapers, tolerated well. No PRNs given. Pt slept for a total of 7 HRS. Last COWS: 4 and Last CIWA: 4 @0400. No s/s of distress noted at this time. Respirations even and unlabored. Will endorse to day shift nurse.
--- NOTE | 2017-05-12 07:53 | NUR ---
BEGINNING OF SHIFT Patient endorsement report received from clinical project coordinator nurse, all pertinent information discussed. Patient is a 26 year old male with admitting Dx: Opiate/bzo dependence. Patient under close observation. Patient continues on 5 day Subutex and 5 day Valium taper as ordered, patient is scheduled to begin day 2 of taper. patient received no PRNs during clinical project coordinator. patient slept for 7 hours, and last cow score of: 4, CIWA: 4. will educate regarding plan of care for the day and medication regimen. safety measures in place. call light kept with in reach. all needs met and rendered, call light kept with in reach, will continue to monitor closely.
[2017-05-12 08:36] VITALS: BP 104/63
[2017-05-12] MEDS: GABAPENTIN 400 MG CAPSULE PO SCH ×4 (08:51→20:28)
[2017-05-12] MEDS: DIAZEPAM 10 MG TABLET PO SCH ×3 (08:51→20:28)
[2017-05-12] MEDS ORDERED: BUPRENORPHINE HCL 2 MG TAB.SUBL SL SCH ×2 (09:00→15:00)
[2017-05-12 10:12] LABS: HEPATITIS B SURFACE AG Negative (Negative)
[2017-05-12 12:51] VITALS: BP 114/61
[2017-05-12] MEDS: BUPRENORPHINE HCL 2 MG TAB.SUBL SL SCH ×3 (12:52→20:28)
[2017-05-12 16:50] VITALS: BP 117/66
--- NOTE | 2017-05-12 19:02 | NUR ---
END OF SHIFT Patient alert and oriented x4, vital signs were WNL during shift. Patient is compliant with therapeutic plan of care. Patient with admitting Dx: opiate dependence and continues on a 5 day Subutex taper as ordered, currently on day 2 of taper, well tolerated, no ASE noted. During shift patient presented with: restlessness, flushed, dilated pupils, mild bone and joint aches, nasal stuffiness, tremors that can be felt but not seen, yawning, irritability, anxiety, mild agitation, and gooseflesh. 0900 COW: 14, CIWA: 8; 0900 COW: 8; CIWA: 5; 1700 COW: 7 CIWA: 4. Detox medication effective at reducing withdrawal symptoms. Received no PRNs during shift superintendent. Encouraged adequate PO fluid intake as tolerated. Encouraged patient to attend group therapies/sessions to learn new coping skills to prevent relapse, noted attending and participating, denies SI/HI.Noted with good appetite during shift. Safety measures in place, call light kept with in reach. Fall precautions observed at all times. Will continue to monitor. Patient endorsed to shift superintendent nurse, all pertinent information discussed.
[2017-05-12 20:00] VITALS: BP 111/72
--- NOTE | 2017-05-12 20:00 | NUR ---
Start of Shift Notes Received a 26 year old male admitted on 05/10/2017 for Opiate/bzo dependence. Px reported PMHx of insomnia, hep C, right forearm I & D. Px has NKA, on Full Code and on regular diet. Patient is on 5 day Subutex and 5 day Valium taper as ordered. During the rounds at 2000, px reported H/A 7/10, and severe anxiety. Safety measures in place. call light kept with in reach. all needs met and rendered, call light kept with in reach. We'll continue to monitor closely.
[2017-05-12] MEDS: DOXEPIN 50 MG CAPSULE PO SCH (20:28)
--- NOTE | 2017-05-12 20:28 | NUR ---
PRN Tylenol Px complained of H/A 10/20. Tylenol 325 mg/tab, 2 tabs given PO as PRN meds. We'll continue to monitor.
--- NOTE | 2017-05-12 21:30 | NUR ---
reassessment of H/A Px reported H/A improved after an hour of Tylenol administration. 07/21. We'll continue to monitor.
[2017-05-13] VITALS: BP 112/65
[2017-05-13 04:00] VITALS: BP 115/68
--- NOTE | 2017-05-13 07:13 | NUR ---
End of Shift Notes 26 year old male admitted on 05/10/2017 for Opiate/bzo dependence. Px reported PMHx of insomnia, hep C, right forearm I & D. Px has NKA, on Full Code and on regular diet. Patient is on 5 day Subutex and 5 day Valium taper as ordered. During the shift, px reported H/A 7/10, and severe anxiety. At 2027, Tylenol 325 mg/tab, 2 tabs given PO as PRN med. Oral intake of 1 L, voided 2x, No BM. Slept for 6 hours. Safety measures in place, bed on loweest position, side rails up 2x. Call light kept with in reach. All needs met and rendered. We'll continue to monitor.
--- NOTE | 2017-05-13 07:18 | NUR ---
BEGINNING OF SHIFT Patient endorsement report received from plant operator/shift supervisor nurse, all pertinent information discussed. Patient is a 26 year old male with admitting Dx: Opiate/bzo dependence. Patient under close observation. Patient continues on 5 day Subutex and 5 day Valium taper as ordered, patient is scheduled to begin day 3 of taper. patient received PRN: Tylenol during plant operator/shift supervisor, medication effective as per plant operator/shift supervisor nurse. patient slept for 6 hours, and last cow score of: 5, CIWA: 6. will educate regarding plan of care for the day and medication regimen. safety measures in place. call light kept with in reach. all needs met and rendered, call light kept with in reach, will continue to monitor closely.
[2017-05-13 08:35] VITALS: BP 102/68
[2017-05-13] MEDS: BUPRENORPHINE HCL 2 MG TAB.SUBL SL SCH ×3 (08:41→20:05)
[2017-05-13] MEDS: GABAPENTIN 400 MG CAPSULE PO SCH ×4 (08:41→20:06)
[2017-05-13] MEDS ORDERED: DIAZEPAM 5 MG TABLET PO SCH (09:00)
[2017-05-13 12:30] VITALS: BP 110/66
[2017-05-13] MEDS: DIAZEPAM 5 MG TABLET PO SCH ×2 (12:34→17:01)
[2017-05-13] MEDS: CLONIDINE HCL 0.1 MG TABLET PO PRN (14:16)
--- NOTE | 2017-05-13 14:16 | NUR ---
PRN CLONIDINE Patient reports feeling increase anxiety, and feeling agitated, patient was provided with non pharmacological interventions with no relief, adminstered clonidine as ordered. bp: 110/66 hr: 68. will continue to monitor.
--- NOTE | 2017-05-13 15:16 | NUR ---
CLONIDINE REASSESSMENT Patient reports medication effective. feels calm. no further c/o anxiety or agitation. bp: 110/66 hr: 68, will continue to monitor.
[2017-05-13 16:51] VITALS: BP 102/68
--- NOTE | 2017-05-13 19:07 | NUR ---
END OF SHIFT Patient alert and oriented x4, vital signs were WNL during shift. Patient is compliant with therapeutic plan of care. Patient with admitting Dx: opiate dependence and continues on a 5 day Subutex taper as ordered, currently on day 3 of taper, well tolerated, no ASE noted. During shift patient presented with: c/o chills, dilated pupils, mild bone and joint aches, tremors that can be felt but not seen, mild anxiety, barely sweating, and agitation. 0900 COW: 5, CIWA: 8; 0900 COW: 3; CIWA:4; 1700 COW:4 CIWA:3. Detox medication effective at reducing withdrawal symptoms. Received PRN: Clonidine during rn shift mgr, medication effective one hour post administration. Encouraged adequate PO fluid intake as tolerated. Encouraged patient to attend group therapies/sessions to learn new coping skills to prevent relapse, noted attending and participating, denies SI/HI.Noted with good appetite during shift. Safety measures in place, call light kept with in reach. Fall precautions observed at all times. Will continue to monitor. Patient endorsed to rn shift mgr nurse, all pertinent information discussed.
--- NOTE | 2017-05-13 19:45 | NUR ---
Start of Shift Notes Received a 26 year old male admitted on 05/10/2017 for Opiate/bzo dependence. Px reported PMHx of insomnia, hep C, right forearm I & D. Px has NKA, on Full Code and on regular diet. Patient is on 5 day Subutex and 5 day Valium taper as ordered. During the rounds at 1945, px reported moderate anxiety. Safety measures in place, bed in lowest position, side rails up 2x and call light kept within reach. We'll continue to monitor.
[2017-05-13 20:00] VITALS: BP 111/70
[2017-05-13] MEDS: BACLOFEN 10 MG TABLET PO SCH (20:05)
[2017-05-13] MEDS: CLONIDINE HCL 0.1 MG TABLET PO SCH (20:06)
[2017-05-13] MEDS: DOXEPIN 50 MG CAPSULE PO SCH (20:06)
[2017-05-13] MEDS ORDERED: DIAZEPAM 10 MG TABLET PO SCH (21:00)
[2017-05-14 04:00] VITALS: BP 104/71
--- NOTE | 2017-05-14 07:31 | NUR ---
End of Shift Notes 26 year old male admitted on 05/10/2017 for Opiate/bzo dependence. Px has NKA, on Full Code and on regular diet. Patient is on 5 day Subutex and 5 day Valium taper as ordered. During the shift, px reported moderate anxiety, and no pain. No PRN med given. Oral intake of 1 L, voided 2x, No BM. Slept for 7 hours. Safety measures in place, bed in lowest position, side rails up 2x and call light kept within reach. We'll continue to monitor.
[2017-05-14 08:00] VITALS: BP 102/59
[2017-05-14] MEDS: BACLOFEN 10 MG TABLET PO SCH ×3 (08:41→21:22)
[2017-05-14] MEDS: GABAPENTIN 400 MG CAPSULE PO SCH ×4 (08:41→21:22)
[2017-05-14] MEDS: CLONIDINE HCL 0.1 MG TABLET PO SCH ×2 (08:42→21:23)
[2017-05-14] MEDS: DIAZEPAM 5 MG TABLET PO SCH ×3 (08:42→21:22)
[2017-05-14] MEDS: BUPRENORPHINE HCL 2 MG TAB.SUBL SL SCH ×2 (08:42→21:22)
--- NOTE | 2017-05-14 10:00 | NUR ---
START OF SHIFT Received report from awake overnight monitor nurse. Patient is 26 year old male admitted for medically supervised withdrawal from heroin and alprazolam. Patient is full code with NKA. On assessment this AM: CIWA 3 and COWS: 4. Denies SOB, chest pain. Patient reports anxiety, dilated pupils noted and reports body aches. Compliant with AM meds. Held clonidine this AM (BP 102/59, HR 52). Pt. is ambulating with steady gait, no falls noted.
[2017-05-14] MEDS: CLONIDINE HCL 0.1 MG TABLET PO PRN ×2 (10:33→16:55)
--- NOTE | 2017-05-14 10:33 | NUR ---
PRN CLONIDINE Patient complained of anxiety, PRN clonidine given (BP 111/66). Will continue to monitor patient.
--- NOTE | 2017-05-14 11:33 | NUR ---
REASSESSMENT PRN CLONIDINE Patient reports anxiety resolved. Med effective.
[2017-05-14 12:00] VITALS: BP 115/75
[2017-05-14 16:00] VITALS: BP 111/75
--- NOTE | 2017-05-14 16:55 | NUR ---
PRN CLONIDINE Patient complained of anxiety, PRN clonidine given (BP 111/75). Will continue to monitor patient.
--- NOTE | 2017-05-14 17:55 | NUR ---
REASSESSMENT PRN CLONIDINE Patient reports anxiety resolved, prn effective.
--- NOTE | 2017-05-14 19:15 | NUR ---
START OF SHIFT NOTE : Patient is a 26 year old male admitted for Opiate/benzo dependence on 05/10/2017 . Patient continues his 5 day Subutex and 5 day Valium taper, started on 05/11/2017. Patient is full code with NKA, on regular diet. Pt. is resting in the room, watching TV, complains of increased level of anxiety. Bed on lowest position with side rails x2 up for safety. Call light within reach. No distress noted at this time.
[2017-05-14 20:00] VITALS: BP 113/70
[2017-05-14] MEDS: DOXEPIN 50 MG CAPSULE PO SCH (21:21)
--- NOTE | 2017-05-15 06:34 | NUR ---
END OF SHIFT NOTE : Patient is a 26 year old male admitted for Opiate/bzo dependence on 05/10/2017 . Patient continues his 5 day Subutex and 5 day Valium taper, started on 05/11/2017. Patient is full code with NKA, on regular diet. Pt remains compliant with the treatment plan. No PRNs were given during my shift. V/S remain WNL. RR=16, even and unlabored, lungs clear upon auscultation, abdomen soft and non- distended. Pt denies nausea, vomiting and diarrhea. COWS, CIWA taken when pt. was alert during the night, LAST COWS=3 , CIWA=3 at 0400 , INTAKE= 1,050 ml, voided x2 , slept 6 hours. Safety measures in place : bed on lowest position with side rails x2 up for safety, call light within reach. Will continue to monitor closely and offer help.
--- NOTE | 2017-05-15 07:17 | NUR ---
BEGINNING OF SHIFT Patient endorsement report received from overnight associate nurse, all pertinent information discussed. Patient is a 26 year old male with admitting Dx: Opiate/bzo dependence. Patient under close observation. Patient continues on 5 day Subutex and 5 day Valium taper as ordered, patient is scheduled to begin day 5 of taper. patient received no PRNs during overnight associate. patient slept for 6 hours, and last cow score of: 3, CIWA: 3. will educate regarding plan of care for the day and medication regimen. safety measures in place. call light kept with in reach. all needs met and rendered, call light kept with in reach, will continue to monitor closely.
[2017-05-15 08:42] VITALS: BP 101/60
[2017-05-15] MEDS: DIAZEPAM 5 MG TABLET PO SCH ×2 (08:56→21:08)
[2017-05-15] MEDS: BACLOFEN 10 MG TABLET PO SCH ×3 (08:56→21:08)
[2017-05-15] MEDS: GABAPENTIN 400 MG CAPSULE PO SCH ×4 (08:56→21:08)
[2017-05-15] MEDS: BUPRENORPHINE HCL 2 MG TAB.SUBL SL SCH ×2 (08:57→21:08)
[2017-05-15] MEDS ORDERED: BUPRENORPHINE HCL 2 MG TAB.SUBL SL SCH (09:00)
[2017-05-15] MEDS: CLONIDINE HCL 0.1 MG TABLET PO SCH ×2 (09:00→21:08)
[2017-05-15 12:05] VITALS: BP 122/78
[2017-05-15] MEDS: CLONIDINE HCL 0.1 MG TABLET PO PRN (12:15)
--- NOTE | 2017-05-15 12:15 | NUR ---
PRN CLONIDINE Patient reports feeling increase anxiety, and feeling agitated, patient was provided with non pharmacological interventions with no relief, administered clonidine as ordered. bp: 122/78 hr: 81. will continue to monitor.
--- NOTE | 2017-05-15 13:15 | NUR ---
CLONIDINE REASSESSMENT Patient reports medication effective. feels calm. no further c/o anxiety or agitation. bp: 112/74 hr: 78, will continue to monitor.
[2017-05-15 16:37] VITALS: BP 95/63
--- NOTE | 2017-05-15 19:03 | NUR ---
END OF SHIFT Patient alert and oriented x4, vital signs were WNL during shift. Patient is compliant with therapeutic plan of care. Patient with admitting Dx: opiate dependence and continues on a 5 day Subutex taper as ordered, currently on day 5 of taper, well tolerated, no ASE noted. During shift patient presented with: elevated heart rate, anxiety and mild agitation. 0900 COW: 5, CIWA:6; 0900 COW:4; CIWA:4; 1700 COW:2 CIWA:2. Detox medication effective at reducing withdrawal symptoms. Received PRN: Clonidine during shift, medication effective one hour post administration. Encouraged adequate PO fluid intake as tolerated. Encouraged patient to attend group therapies/sessions to learn new coping skills to prevent relapse, noted attending and participating, denies SI/HI.Noted with good appetite during shift. Safety measures in place, call light kept with in reach. Fall precautions observed at all times. Will continue to monitor. Patient endorsed to caustic cresylate shift superintendent nurse, all pertinent information discussed.
[2017-05-15 20:00] VITALS: BP 106/60
--- NOTE | 2017-05-15 20:06 | NUR ---
START OF SHIFT NOTE : Patient is a 26 year old male admitted for Opiate/bzo dependence on 05/10/2017 . Patient continues his 5 day Subutex and 5 day Valium taper, started on 05/11/2017. Patient is full code with NKA, on regular diet. Pt. is in the activity room, communicating with other clients, he doesnt have any complains at this time. Safety measures in place : bed on lowest position with side rails x2 up for safety, call light within reach. Will continue to monitor closely and offer help.
[2017-05-15] MEDS: DOXEPIN 50 MG CAPSULE PO SCH (21:07)
--- NOTE | 2017-05-16 06:50 | NUR ---
END OF SHIFT NOTE : Patient is a 26 year old male admitted for Opiate/bzo dependence on 05/10/2017 . Patient continues his 5 day Subutex and 5 day Valium taper, started on 05/11/2017. Patient is full code with NKA, on regular diet. Pt remains compliant with the treatment plan. No PRNs were given during my shift. V/S remain WNL. RR=16, even and unlabored, lungs clear upon auscultation, abdomen soft and non- distended. Pt denies nausea, vomiting and diarrhea. COWS, CIWA taken when pt. was alert during the night, LAST COWS=2 , CIWA=2 at 0400 , INTAKE= 1,802 ml, voided x3 , slept 4 hours. Safety measures in place : bed on lowest position with side rails x2 up for safety, call light within reach. Will continue to monitor closely and offer help.
--- NOTE | 2017-05-16 07:10 | NUR ---
Start of Shift Semiconductor Equipment Technician received report on 26 year old male admitted to [facility] on 05/10/17 for Heroin and Xanax [id number]. Pt reports NKA, full code and regular diet. Pt reports a PMH of Hep C, multiple fractures, and insomnia with no history of seizures. Pt is currently on a Subutex and Valium taper, tolerating well. Last COWS 2 and CIWA 2 per NOC. Pt slept 4 hours with no PRN medication administered on NOC. Semiconductor Equipment Technician encounters pt in room resting with eyes closed and even, unlabored respirations. Rise and fall of chest noted. Bed in low position, wheels locked and side rails up x2. Will continue to monitor, support and encourage according to plan of care.
[2017-05-16 08:20] VITALS: BP 96/61
[2017-05-16] MEDS ORDERED: BUPRENORPHINE HCL 2 MG TAB.SUBL SL SCH (09:00)
[2017-05-16] MEDS: CLONIDINE HCL 0.1 MG TABLET PO SCH ×2 (09:00→21:03)
[2017-05-16] MEDS ORDERED: DIAZEPAM 5 MG TABLET PO SCH (09:00)
[2017-05-16] MEDS: BACLOFEN 10 MG TABLET PO SCH ×3 (09:28→21:04)
[2017-05-16] MEDS: GABAPENTIN 400 MG CAPSULE PO SCH ×4 (09:28→21:03)
[2017-05-16 12:17] VITALS: BP 110/74
[2017-05-16] MEDS: CLONIDINE HCL 0.1 MG TABLET PO PRN (12:26)
--- NOTE | 2017-05-16 12:28 | NUR ---
PRN Clonidine Pt complain of increased anxiety. Grant Manager held 0900 dose of Clonidine d/t decreased BP. BP is WNL and auto service writer administered Clonidine to MD order with pt tolerating well and with no further comments, questions or concerns. Will continue to monitor, support and encourage according to plan of care.
--- NOTE | 2017-05-16 13:28 | NUR ---
PRN Re-Assessment Pt endorses feeling relief and is social with peers and relaxed with staff. Will continue to monitor, support and encourage according to plan of care.
[2017-05-16 16:27] VITALS: BP 117/63
--- NOTE | 2017-05-16 19:07 | NUR ---
End of Shift Hospital Clinic Assistant provided report on 26 year old male admitted to [facility] on 05/10/17 for Heroin and Xanax detoxification. Pt reports NKA, full code and regular diet. Pt reports a PMH of Hep C, multiple fractures, and insomnia with no history of seizures. Pt has concluded his Subutex/Valium taper, tolerated well. Pt is set to discharge tomorrow am. Last COWS 2 and CIWA 1 recorded at 1600. Pt administered Clonidine at 1230 for anxiety, with pt reporting some relief. Pt is calm, cooperative and A/O x4 and able to make his needs known. Pt has a bright affect with congruent mood, full range of emotions. Clear thought and speech content. Hopeful to discharge to a Sober Living, instead of back home. Shows some insight into illness and the progression of the disease. Bed in low position, wheels locked and side rails up x2.
--- NOTE | 2017-05-16 19:15 | NUR ---
START OF SHIFT NOTE : Patient is a 26 year old male admitted for Opiate/bzo dependence on 05/10/2017 . Patient continues his 5 day Subutex and 5 day Valium taper, started on 05/11/2017 and tolerated well. Patient is full code with NKA, on regular diet. Pt. is walking on the floor, communicating with other clients, he doesnt have any complains at this time and will be D/C tomorrow in A.M. Safety measures in place : bed on lowest position with side rails x2 up for safety, call light within reach. Will continue to monitor closely and offer help.
[2017-05-16 20:00] VITALS: BP 121/72
--- NOTE | 2017-05-16 21:00 | NUR ---
PRN MOTRIN Pt. complains of headache 09/20. PRN MOTRIN given as ordered. Safety measures in place : bed on lowest position with side rails x2 up for safety, call light within reach. Will continue to monitor closely and offer help.
[2017-05-16] MEDS: DOXEPIN 50 MG CAPSULE PO SCH (21:04)
--- NOTE | 2017-05-16 22:00 | NUR ---
RE-ASSESSMENT LILLIAN Pt. is sleeping, RR=16 unlabored and even. Safety measures in place : bed on lowest position with side rails x2 up for safety, call light within reach. Will continue to monitor closely and offer help.
--- NOTE | 2017-05-17 06:43 | NUR ---
END OF SHIFT NOTE : Patient is a 26 year old male admitted for Opiate/bzo dependence on 05/10/2017 . Patient continues his 5 day Subutex and 5 day Valium taper, started on 05/11/2017. Patient is full code with NKA, on regular diet. Pt remains compliant with the treatment plan. PRN MOTRIN given during my shift. V/S remain WNL. RR=16, even and unlabored, lungs clear upon auscultation, abdomen soft and non- distended. Pt denies nausea, vomiting and diarrhea, he will be D/C today in A.M. COWS, CIWA taken when pt. was alert during the night, LAST COWS=3 , CIWA=4 at 0400 , INTAKE= 500 ml, voided x2 , slept 7 hours. Safety measures in place : bed on lowest position with side rails x2 up for safety, call light within reach. Will continue to monitor closely and offer help.
--- NOTE | 2017-05-17 07:35 | NUR ---
Start of shift- Patient is a 26 y/o male admitted for heroin and Xanax dependence. Pt in bed and appears to be sleeping. Respirations even and unlabored. Pt slept 7 hours last night. Patient completed his 5 day Subutex and 5 day Valium taper. Last night he received PRN Motrin. At 0400 last COWS 2, CIWA 1. Full Code, NKA, regular diet. PMH Hep C. Pt will be D/C today to [facility].
[2017-05-17 08:03] VITALS: BP 105/71
[2017-05-17 08:05] VITALS: BP 105/71
[2017-05-17] MEDS: BACLOFEN 10 MG TABLET PO SCH (08:05)
[2017-05-17] MEDS: CLONIDINE HCL 0.1 MG TABLET PO SCH (08:05)
[2017-05-17] MEDS: GABAPENTIN 400 MG CAPSULE PO SCH (08:06)
[2017-05-17] MEDS ORDERED: CLON0.1T14 PO (08:48)
[2017-05-17] MEDS ORDERED: IBUP-1955 PO (08:48)
[2017-05-17] MEDS ORDERED: NICO-671 TD (08:48)
[2017-05-17] MEDS ORDERED: GABA-536 PO (08:48)
[2017-05-17] MEDS ORDERED: BACL10TA PO (08:48)
--- NOTE | 2017-05-17 09:14 | NUR ---
Discharge Note- Pt is in stable condition, VSS, skin intact, denies suicidal or homicidal ideations. All discharge paperwork signed and dated, pt was discharged from [facility] 05/17/17 at 0914. Left the building with all of his belongings and prescription. notified.
== END 2017-05-17 09:14 | disposition other institution (70) | DRG 895 ==
LOC: SRC 20:27
PROVIDERS: ADMIT Internal Medicine; ATTEND Internal Medicine
PROC: HZ2ZZZZ Detoxification Services for Substance Abuse Treatment (ICD-10-PCS; principal; 2017-05-10)
PROC: HZ41ZZZ Group Counseling for Substance Abuse Treatment, Behavioral (ICD-10-PCS; 2017-05-14)
DX: F13.239 Sedative, hypnotic or anxiolytic dependence with withdrawal, unspecified (principal); E87.1 Hypo-osmolality and hyponatremia; L02.413 Cutaneous abscess of right upper limb; B19.20 Unspecified viral hepatitis C without hepatic coma; F17.210 Nicotine dependence, cigarettes, uncomplicated; F41.9 Anxiety disorder, unspecified; Z91.89 Other specified personal risk factors, not elsewhere classified; Z81.1 Family history of alcohol abuse and dependence; F90.9 Attention-deficit hyperactivity disorder, unspecified type; G44.009 Cluster headache syndrome, unspecified, not intractable; G47.00 Insomnia, unspecified; Z79.899 Other long term (current) drug therapy; F12.90 Cannabis use, unspecified, uncomplicated; F32.9 Major depressive disorder, single episode, unspecified
CPT/HCPCS: 36415; 70030-TC; 80307; 80346; 80349; 80361; 83735; 85025; 86592; 86705; 86803; 87340; 87806; G0480; J8499

== ENCOUNTER 2017-09-01 15:38 | Inpatient (IN) | payer BC, OTHER ==
[~2017-09-01] VITALS: Ht 172.7 cm; Wt 66.2 kg
[~2017-09-01 15:38] MED LIST changes: +BACL10TA PO; +CLON0.1T14 PO; +DOXE50CA4 PO; +GABA-536 PO; +IBUP-1955 PO; +NICO-671 TD
--- NOTE | 2017-09-03 01:45 | NUR ---
Pre admission note Pt seen in intake office. Pt appears intoxicated but in stable condition. Pt requires assistance with ambulation due to intoxication. V/S WNL. Policies in medication disposal explained to and understood by patient. Will admit to unit. Will continue to monitor.
[2017-09-03] MEDS ORDERED: DICYCLOMINE HCL 20 MG TABLET PO PRN (02:00)
[2017-09-03] MEDS ORDERED: ONDANSETRON ODT 4 MG TAB.RAPDIS SL PRN (02:00)
[2017-09-03] MEDS ORDERED: LORAZEPAM 2 MG/1 ML VIAL IM PRN (02:00)
[2017-09-03] MEDS ORDERED: CLONIDINE HCL 0.1 MG TABLET PO PRN (02:00)
[2017-09-03] MEDS ORDERED: ONDANSETRON 4 MG/2 ML VIAL IM PRN (02:00)
[2017-09-03] MEDS ORDERED: MIRALAX 17 GM POWD.PACK PO PRN (02:00)
[2017-09-03] MEDS ORDERED: LOPERAMIDE HCL 2 MG CAPSULE PO PRN ×2 (02:00)
[2017-09-03] MEDS ORDERED: BUPRENORPHINE HCL 2 MG TAB.SUBL SL PRN (02:00)
[2017-09-03] MEDS ORDERED: MAG HYDROX/AL HYDROX/SIMETH 30 ML LIQUID UDC PO PRN (02:00)
[2017-09-03] MEDS ORDERED: diphenhydrAMINE 50 MG CAPSULE PO PRN (02:00)
[2017-09-03] MEDS ORDERED: ACETAMINOPHEN 325 MG TABLET PO PRN (02:00)
[2017-09-03] MEDS ORDERED: DIAZEPAM 5 MG TABLET PO PRN ×2 (02:00→16:00)
[2017-09-03] MEDS ORDERED: MAGNESIUM HYDROXIDE 30 ML LIQUID UDC PO PRN (02:00)
[2017-09-03] MEDS ORDERED: IBUPROFEN 600 MG TABLET PO PRN (02:00)
[2017-09-03] MEDS ORDERED: DIAZEPAM 10 MG TABLET PO PRN ×4 (02:00→16:00)
--- NOTE | 2017-09-03 02:01 | NUR ---
Admission note Pt is a 26 yo male, A+Ox4, presenting to [facility] for Benzo/Opiate withdrawal. Pt is 5'8" in height and 146 LBS in weight. Pt has medical HX of ADHD and insomnia. Pt has family HX of substance abuse from brother. Pt has no primary care provider. Pt has been taking Xanax PO for 8 years (3 months currently), has reached a level of 12-16mg/daily, and last dose was 10mg on 09-03-17 @0000. Pt has been using Heroin IV for 8 years (3 months currently), has reached a level of 1gm/daily, and last dose was 3gm on 09-03-17 @0000. Pt states that he has been taking Vivitrol 100mg PO for sleep aid as a home medication. Pt has HX of previous detox/rehab @ [facility] for 6 days in April 2017. This was the Patient's last time sober. Pt has been a cigarette smoker for 7 years and has reached a level of 20/day. Pt appears intoxicated and disheveled but in stable condition. Pt requires assistance with ambulation due to intoxication. V/S WNL. Pt states "I need to get sober again." Pt states "I came back here to [facility] because i know that you guys will take good care of me." Pt states "If i didn't come to treatment now i'm not sure when i would ever go." Respirations even and unlabored. Will continue to monitor.
[2017-09-03] MEDS ORDERED: NALT380S2 PO (02:21)
[2017-09-03 02:22] VITALS: BP 107/65
[2017-09-03 04:15] VITALS: BP 103/68
--- NOTE | 2017-09-03 07:45 | NUR ---
Start of Shift Note Pt. is a 26 y/o newly admitted for the medically supervised withdrawal of Opiates and Benzodiazepines. Was endorsed that this pt. came in intoxicated during the Pm shift. Pt. has a past medical history of ADHD and Insomnia. Pt. denies a history of seizures. At this time pt. is on a 1:1 and has still not provided a urine sample, or let labs be drawn. Received pt. in his room with eyes closed laying in his bed. Pt. responds to name and touch but immediately goes back to sleep and becomes irritable if not left alone. Endorsed that after admission pt. remained in room for majority of the PM shift except to get food from kitchen. Pt is on PRN medications until further evaluation from in AM. Pt was not given any PRN medications during PM shift. Pt slept for a total of 4 HRS. Last COWS: 5 and Last CIWA: 5 @0400. Respirations even and unlabored. Will continue to monitor pt.s behavior for safety.
--- NOTE | 2017-09-03 08:00 | NUR ---
ANKITA Deferred Pt. in bed with eyes closed. Responds to name and touch but becomes irritable and refuses to keep eyes open. Will re-assess once pt. is rested and is more compliant with assessments.
[2017-09-03] MEDS: MULTIVITAMINS,THERAPEUTIC TABLET PO SCH (09:00)
--- NOTE | 2017-09-03 09:55 | NUR ---
Refused Medication Pt. refused his scheduled multi vitamin this morning. Pt. in bed with eyes closed and becomes agitated when woken up. Educated pt. on the importance of medication compliance and his medication regiment. Pt. still refused. Will continue to monitor pt.'s behavior for safety.
[2017-09-03 11:59] VITALS: BP 98/60
[2017-09-03] MEDS ORDERED: LORAZEPAM 1 MG TABLET PO PRN ×2 (12:00)
--- NOTE | 2017-09-03 12:00 | NUR ---
ANKITA's Deferred Pt. in bed with eyes closed. Responds to name and touch but becomes irritable and refuses to keep eyes open. Will re-assess once pt. is rested and is more compliant with assessments
[2017-09-03 12:30] VITALS: BP 98/60
[2017-09-03] MEDS: GABAPENTIN 400 MG CAPSULE PO SCH ×3 (13:01→21:23)
[2017-09-03 15:10] LABS: BASOPHILS % (AUTO) 0.7 % (0.0-2.0); EOSINOPHILS # (AUTO) 0.1 K/uL (0.0-0.7); EOSINOPHILS % (AUTO) 1.4 % (0.0-7.0); HEMATOCRIT 38.1 % (36.7-47.1); HEMOGLOBIN 13.2 g/dL (12.5-16.3); LYMPHOCYTES # (AUTO) 2.1 K/uL (20.0-40.0); LYMPHOCYTES % (AUTO) 32.3 % (20.5-51.5); MEAN CORPUSCULAR HEMOGLOBIN 30.5 uug (23.8-33.4); MEAN CORPUSCULAR HGB CONC 35 g/dL (32.5-36.3); MEAN CORPUSCULAR VOLUME 88.1 fL (73.0-96.2); MONOCYTES # (AUTO) 0.7 K/uL (2.0-10.0); NEUTROPHILS # (AUTO) 3.6 K/uL (1.8-8.9); NEUTROPHILS % (AUTO) 54.6 % (38.5-71.5); PLATELET COUNT (AUTO) 237 K/uL (152-348); RED BLOOD CELL COUNT(AUTO) 4.33 MIL/uL (4.06-5.63); WHITE BLOOD COUNT (AUTO) 6.5 K/uL (3.6-10.2)
[2017-09-03 15:15] LABS: ALANINE AMINOTRANSFERASE 73 U/L (16-63); ALKALINE PHOSPHATASE 73 U/L (50-136); ASPARTATE AMINOTRANSFERASE 47 U/L (15-37); BILIRUBIN,TOTAL 0.3 mg/dL (0.2-1.0); CARBON DIOXIDE 27 mmol/L (21-32); CHLORIDE 104 mmol/L (98-107); CREATININE 1.1 mg/dL (0.6-1.3); GLUCOSE 136 mg/dL (74-106); LIPASE 74 U/L (73-393); POTASSIUM 3.7 mmol/L (3.5-5.1); TOTAL PROTEIN, SERUM 7.1 g/dL (6.4-8.2); UREA NITROGEN, BLOOD 15 mg/dL (7-18)
[2017-09-03 15:30] LABS: ETHANOL < 3 MG/DL (0-0)
[2017-09-03 15:52] LABS: THYROID STIMULATING HORMONE 0.679 mIU/mL (0.358-3.740)
[2017-09-03] MEDS: DIAZEPAM 10 MG TABLET PO SCH ×2 (16:34→18:54)
[2017-09-03] MEDS: BUPRENORPHINE HCL 2 MG TAB.SUBL SL SCH ×2 (16:34→21:24)
[2017-09-03 16:43] VITALS: BP 100/60
[2017-09-03 18:21] LABS: *AMPHETAMINE, URINE NEGATIVE (NEGATIVE); *BARBITURATE, URINE POSITIVE (NEGATIVE); *CANNABINOID, URINE NEGATIVE (NEGATIVE); *COCCAINE, URINE NEGATIVE (NEGATIVE); *OPIATE, URINE POSITIVE (NEGATIVE); *PHENCYCLIDINE SCREEN,URINE NEGATIVE (NEGATIVE)
--- NOTE | 2017-09-03 19:15 | NUR ---
End of Shift Note Pt. is a 26 y/o admitted for the medically supervised withdrawal of Opiates and Benzodiazepines. Pt. has a past medical history of ADHD and Insomnia. Pt. denies a history of seizures. At this time pt. is on a 1:1 Pt. is lethargic and spends most of this time in his bed with his eyes closed. Pt. is arousable to touch and name but becomes irate when woken up for med pass or assessments. When awake pt. is restless, irritable, anxious with a flushed face, and fine hand tremors. Pt. was not given any PRN medications. . Last COWS: 14 and Last CIWA: 13 @1600. Pt. had 500ml of PO intake and voided X1. Respirations even and unlabored. Will endorse pt.s behavior and care.
--- NOTE | 2017-09-03 19:16 | NUR ---
Start of shift note Received report from day shift nurse. Pt is a 26 yo male, A+Ox4, presenting to [facility] for Benzo/Opiate withdrawal. Pt noted to be irritable, agitated, anxious, and restless. Pt has HX of ADHD and Insomnia which will be monitored during shift. Pt is on 5 day Subutex and 5 day Valium taper, tolerated well. Respirations even and unlabored. Will continue to monitor.
[2017-09-03 20:51] VITALS: BP 110/68
[2017-09-03] MEDS: DOXEPIN 50 MG CAPSULE PO SCH (21:23)
[2017-09-03] MEDS ORDERED: DIAZEPAM 10 MG TABLET PO SCH (22:00)
[2017-09-04] VITALS (7 sets, daily range): BP systolic 96–118; BP diastolic 45–77
--- NOTE | 2017-09-04 07:00 | NUR ---
End of shift note Pt was continuously noted with anxiety, agitation, and restlessness. Pt remained in room on 1:1 sitter for unsteady gait for majority of shift except to get food from kitchen and to go smoke on smoking patio. Pt is on 5 day Subutex and 5 day Valium tapers, tolerated well. Pt was not given any PRN medications during shift. Pt slept for a total of 10 HRS. Last COWS: 8 and Last CIWA: 8 @0400. Respirations even and unlabored. Will endorse to day shift nurse.
--- NOTE | 2017-09-04 07:30 | NUR ---
START OF SHIFT Pt 26 y/o male admitted for benzo/ opiate withdrawal. Pt received in room on bed with eyes closed resting, but easily arousable to name. Pt alert and oriented to name, place, and time. Perrla. Skin warm and moist to touch. Respirations even and unlabored. Bilateral hand tremors noted. Pt appears disheveled. Food wrappings and empty drink bottles scattered throughout room. Encouraged to maintain hygiene. It was reported that pt slept for 10 hours last night. Last cows=8 ciwa=8 @ 0400. Pt is on a 5 day subutex and is on day 2 and 4 day valium and is on day 2. Bed on lowest position with side rails 2 up for safety. call light within reach.
[2017-09-04] MEDS: BUPRENORPHINE HCL 2 MG TAB.SUBL SL SCH ×3 (08:44→20:31)
[2017-09-04] MEDS: GABAPENTIN 400 MG CAPSULE PO SCH ×4 (08:44→20:31)
[2017-09-04] MEDS: DIAZEPAM 10 MG TABLET PO SCH ×3 (08:44→20:31)
[2017-09-04] MEDS: MULTIVITAMINS,THERAPEUTIC TABLET PO SCH (08:44)
[2017-09-04] MEDS ORDERED: TUBERCULIN,PURIF.PROT.DERIV. 5 TU/0.1 ML TEST ID ONE (09:00)
[2017-09-04 11:09] LABS: HEPATITIS B SURFACE AG Negative (Negative)
[2017-09-04] MEDS: METHOCARBAMOL 750 MG TABLET PO PRN (12:55)
--- NOTE | 2017-09-04 13:04 | NUR ---
PRN pt with ciwa=8. valium 5mg po prn per MD order given and tolerated well.
--- NOTE | 2017-09-04 14:04 | NUR ---
PRN Pt with ciwa=3.
--- NOTE | 2017-09-04 19:15 | NUR ---
END OF SHIFT Pt 26 y/o male admitted for benzo/ opiate withdrawal. Pt alert and oriented to name, place, and time. Perrla. Skin warm and moist to touch. Respirations even and unlabored. Bilateral hand tremors noted. Pt appears disheveled and unkempt. Dirty under fingernails of both hand noted. Clothes and food wrappings scattered throughout the room. Encouraged to maintain hygiene. Pt isolative to room. Pt did not attend group activity. Pt was seen by MD today. Pt medication compliant and tolerated well. No ASE noted. Cows=9@0800, 9@1200, and 9@1600. Ciwa=9@0800, 8@1200, and 4@1600. Pt is on a 5 day subutex taper and is on day 2. Pt is also on a 4 day valium taper and is on day 2. Bed on lowest position with side rails x2 up for safety. Call light within reach.
--- NOTE | 2017-09-04 19:16 | NUR ---
Start of shift note Received report from day shift nurse. Pt is a 26 yo male, A+Ox4, presenting to [facility] for Benzo/Opiate withdrawal. Pt noted to be anxious, restless, agitated. Pt has HX of ADHD, insomnia, and Hep C which will be monitored during shift. Pt is on 5 day Subutex and 4 day Valium tapers, tolerated well. Respirations even and unlabored. Will continue to monitor.
[2017-09-04] MEDS: DOXEPIN 50 MG CAPSULE PO SCH (20:31)
[2017-09-05] VITALS (7 sets, daily range): BP systolic 90–124; BP diastolic 46–84
--- NOTE | 2017-09-05 06:58 | NUR ---
End of shift note Pt was continuously noted with anxiety, agitation, restlessness, body aches, and chills. Pt remained in room for majority of shift except to get food from kitchen and to go smoke on smoking patio. Pt is on 5 day Subutex and 4 day Valium tapers, tolerated well. Pt was not given any PRN medications during shift. Pt slept for a total of 9 HRS. Last COWS: 8 and Last CIWA: 9 @0400. Respirations even and unlabored. Will endorse to day shift nurse.
--- NOTE | 2017-09-05 07:30 | NUR ---
START OF SHIFT Pt 26 y/o male admitted for benzo/ opiate withdrawal. Pt received in room on bed with eyes closed resting, but easily arousable to name. Pt alert and oriented to name, place, and time. Perrla. Skin warm and moist to touch. Respirations even and unlabored. Bilateral hand tremors noted. Pt with flat affect. Pt appears disheveled. Clothes scattered throughout room. Encouraged to maintain hygiene. It was reported that pt slept for 9 hours last night. Last cows=8 ciwa=9 @ 0400. Pt is on a 5 day subutex and is on day 3. Pt is also on a 4 day valium and is on day 3. Bed on lowest position with side rails 2 up for safety. call light within reach.
[2017-09-05] MEDS: MULTIVITAMINS,THERAPEUTIC TABLET PO SCH (08:42)
[2017-09-05] MEDS: GABAPENTIN 400 MG CAPSULE PO SCH ×4 (08:42→20:37)
[2017-09-05] MEDS ORDERED: BUPRENORPHINE HCL 2 MG TAB.SUBL SL SCH (09:00)
[2017-09-05] MEDS ORDERED: DIAZEPAM 5 MG TABLET PO SCH ×2 (09:00)
[2017-09-05] MEDS: DIAZEPAM 5 MG TABLET PO SCH ×2 (12:02→16:04)
[2017-09-05] MEDS: BUPRENORPHINE HCL 2 MG TAB.SUBL SL SCH ×2 (14:46→20:37)
--- NOTE | 2017-09-05 18:14 | NUR ---
END OF SHIFT Pt 26 y/o male admitted for benzo/ opiate withdrawal. Pt alert and oriented to name, place, and time. Perrla. Skin warm and moist to touch. Respirations even and unlabored. Bilateral hand tremors noted. Pt appears disheveled and unkempt. Clothes and food wrappings scattered throughout the room. Encouraged to maintain hygiene. Encouraged pt to shower. Pt isolative to room. Pt did not attend group activity. Pt was seen by MD today. Pt medication compliant and tolerated well. No ASE noted. Cows=9@0800, 9@1200, and 9@1600. Ciwa=9@0800, 9@1200, and 9@1600. Pt is on a 5 day subutex taper and is on day 3. Pt is also on a 4 day valium taper and is on day 3. Bed on lowest position with side rails x2 up for safety. Call light within reach.
--- NOTE | 2017-09-05 19:30 | NUR ---
Start of Shift Pt is a 26 y/o male admitted 09/03/17 for medically managed withdrawal/detox from Xanax and Heroin. Pt is on a Modified 4 day Valium and a 5 day Subutex taper, with last reported COWS and CIWA TO BE 10 and 10. Pt is noted to be a full code with allergies to Seroquel and Trazadone, and a regular diet. Room is messy with food, food wrappers, drinks and clothes laying around and on floor. Pt found awake lying in bed watching tv, able to answer questions and follow commands appropriately, A&O x 4. Evening meds reviewed with patient, no requests made for PRNs. Will continue to monitor pt for shift until morning endorsement, promptly attending to all pt needs.
[2017-09-05] MEDS: DOXEPIN 50 MG CAPSULE PO SCH (20:36)
[2017-09-05] MEDS ORDERED: DIAZEPAM 10 MG TABLET PO SCH (21:00)
--- NOTE | 2017-09-06 | NUR ---
VS's COWS/CIWA Deferred Midnight VS's and COWS/CIWA deferred r/t pt sleeping/refused. RR 14, even and nonlabored. Will continue to monitor and promptly attend to all pt needs.
--- NOTE | 2017-09-06 04:00 | NUR ---
VS's COWS/CIWA Deferred 0400 VS's and COWS/CIWA deferred r/t pt sleeping/refused. RR 14, even and nonlabored. Will continue to monitor and promptly attend to all pt needs.
--- NOTE | 2017-09-06 06:41 | NUR ---
End of Shift Pt is a 26 y/o male admitted 09/03/17 for medically managed withdrawal/detox from Xanax and Heroin. Pt is on a Modified 4 day Valium and a 5 day Subutex taper, with last COWS and CIWA 10 and 10 at 1999. Pt is noted to be a full code with allergies to Seroquel and Trazadone, and a regular diet. PRNs for shift include . Pt slept 8 hours, with 855 intake, 1 voids and 0 BMs. Will continue to monitor pt for shift until morning endorsement, promptly attending to all pt needs. Addendum: 09/06/17 at 0645 by VIBHA KENNEDY RN Addendum: There were no PRN meds administered this shift
--- NOTE | 2017-09-06 07:30 | NUR ---
Start of Shift Pickling Tank Operator received report on 26 year old male admitted to [facility] on 09/03/17 for medical management of Benzodiazepine and Opiate withdrawals. Pt has allergies to Seroquel and Trazodone, full code and regular diet. PMH to include Hepatitis C with no history of seizures, PPH of ADHD and Insomnia. No PRN medication administered on NOC, per report. Pt currently on Subutex and Valium tapers, tolerating well with last COWS 10 and CIWA 10, per NOC report. Pickling Tank Operator encounters pt in pts room, pt is resting and A/O x4 and able to make needs known. Pt is irritable and somnolent. Bed on low position with wheels locked and side rails up x2. Will continue to monitor, support and encourage according to plan of care.
[2017-09-06 08:34] VITALS: BP 101/62
[2017-09-06] MEDS: DIAZEPAM 5 MG TABLET PO SCH ×3 (08:52→20:13)
[2017-09-06] MEDS: BUPRENORPHINE HCL 2 MG TAB.SUBL SL SCH ×3 (08:52→20:13)
[2017-09-06] MEDS: MULTIVITAMINS,THERAPEUTIC TABLET PO SCH (08:52)
[2017-09-06] MEDS: GABAPENTIN 400 MG CAPSULE PO SCH ×4 (08:52→20:13)
[2017-09-06] MEDS ORDERED: DIAZEPAM 5 MG TABLET PO SCH ×2 (09:00)
[2017-09-06] MEDS ORDERED: KETOROLAC TROMETHAMINE 30 MG INJ IM PRN (10:45)
[2017-09-06 12:04] VITALS: BP 126/79
[2017-09-06 16:40] VITALS: BP 114/80
--- NOTE | 2017-09-06 19:00 | NUR ---
End of Shift Correctional Officer Captain provided report on 26 year old male admitted to [facility] on 09/03/17 for medical management of Benzodiazepine and Opiate withdrawals. Pt has allergies to Seroquel and Trazodone, full code and regular diet. PMH to include Hepatitis C with no history of seizures, PPH of ADHD and Insomnia. No PRN medication administered on this shift. Pt currently on Subutex and Valium tapers, tolerating well with last COWS 6 and CIWA 9, recorded at 1630. Pt has been anxious and hyper-active, irritable at times. Cooperative and pleasant with public relations writer. Makes needs known and speaks with clear thought. A/O x4 with a flat affect and full range of emotions when prompted. Pt is irritable and somnolent. Bed on low position with wheels locked and side rails up x2.
[2017-09-06 20:00] VITALS: BP 138/81
--- NOTE | 2017-09-06 20:00 | NUR ---
START OF SHIFT NOTE RECEIVED REPORT FROM DAY SHIFT NURSE. PATIENT IS A 26 YEAR OLD MALE ADMITTED FOR BENZO/OPIATE WITHDRAWAL. PATIENT IS ON 3RD DAY OF HIS 5 DAY SUBUTEX AND 4 DAY VALIUM TAPER. PATIENT DID NOT REQUIRE PRN MEDICATION . LAST COWS 6 AND CIWA 9. RECEIVED PATIENT ALERT AND ORIENTED X 4. RESPIRATION EVEN AND UNLABORED. PATIENT PRESENTS WITH FLAT AFFECT, BLUNTED, HOT AND COLD SWEATS, CHILLS, ANXIETY, RESTLESSNESS, IRRITABLE, AGITATED AND C/O PAIN ON BACK. PATIENT ROOM SMELL, GARBAGE AROUND ROOM AND CLOTHES THROWN ON FLOOR. SAFETY MEASURES IN PLACE. CALL LIGHT IN REACH. WILL CONTINUE TO MONITOR
[2017-09-06] MEDS: METHOCARBAMOL 750 MG TABLET PO PRN (20:13)
--- NOTE | 2017-09-06 20:13 | NUR ---
PRN ROBAXIN ADMINISTRATION PATIENT C/O BACK PAIN. WILL MONITOR FOR EFFECTIVENESS
[2017-09-06 20:14] VITALS: BP 138/81
[2017-09-06] MEDS: DOXEPIN 50 MG CAPSULE PO SCH (21:00)
[2017-09-06] MEDS ORDERED: BACLOFEN 10 MG TABLET PO SCH (21:00)
[2017-09-06] MEDS ORDERED: CLONIDINE HCL 0.1 MG TABLET PO SCH (21:00)
--- NOTE | 2017-09-06 21:00 | NUR ---
REFUSED SINEQUAN PATIENT REFUSED SINEQUAN. EXPLAINED RISKS/BENEFITS. WILL CONTINUE TO MONITOR
--- NOTE | 2017-09-06 21:13 | NUR ---
PRN ROBAXIN RE-ASSESSMENT PATIENT STATES ROBAXIN IS HELPFUL AND EFFECTIVE. NO PAIN AT THIS TIME.
--- NOTE | 2017-09-06 22:23 | NUR ---
AMA NOTE PATIENT STATED THAT HE WANTED TO LEAVE AMA. PATIENT DID NOT GIVE A REASON WHY HE WANTS TO LEAVE. PATIENT EDUCATED ABOUT RISKS AND CONSEQUENCES OF LEAVING AMA. PATIENT VERBALIZED UNDERSTANDING BUT STILL REQUESTED TO LEAVE. MULTIPLE STAFF MEMBERS AND DR. ROCHA SPOKE WITH THE PATIENT WITHOUT ANY SUCCESS. PATIENT REFUSED VS. PATIENT DENIES ANY SUICIDAL/HOMICIDAL IDEATIONS. PATIENT WAS GIVEN A LIST OF COMMUNITY RESOURCES IN CASE HE IS IN NEED OF HELP. ALL BELONGINGS RETURNED TO PATIENT. PATIENT LEFT THE FACILITY ON 2222.
[2017-09-07] MEDS ORDERED: DIAZEPAM 5 MG TABLET PO SCH ×2 (09:00)
[2017-09-07] MEDS ORDERED: BUPRENORPHINE HCL 2 MG TAB.SUBL SL SCH ×2 (09:00)
[2017-09-08] MEDS ORDERED: BUPRENORPHINE HCL 2 MG TAB.SUBL SL SCH (09:00)
[2017-09-08] MEDS ORDERED: DIAZEPAM 5 MG TABLET PO SCH (09:00)
== END 2017-09-06 22:23 | disposition left against medical advice (07) | DRG 894 ==
LOC: SRC 09-03 01:02
PROVIDERS: ADMIT Internal Medicine; ATTEND Internal Medicine
PROC: HZ2ZZZZ Detoxification Services for Substance Abuse Treatment (ICD-10-PCS; principal; 2017-09-03)
PROC: HZ51ZZZ Individual Psychotherapy for Substance Abuse Treatment, Behavioral (ICD-10-PCS; 2017-09-04)
DX: F13.232 Sedative, hypnotic or anxiolytic dependence with withdrawal with perceptual disturbance (principal); E88.09 Other disorders of plasma-protein metabolism, not elsewhere classified; F11.23 Opioid dependence with withdrawal; F17.210 Nicotine dependence, cigarettes, uncomplicated; B19.20 Unspecified viral hepatitis C without hepatic coma; F41.9 Anxiety disorder, unspecified; F90.9 Attention-deficit hyperactivity disorder, unspecified type; Z81.1 Family history of alcohol abuse and dependence; G44.009 Cluster headache syndrome, unspecified, not intractable; Z59.1 Inadequate housing; Z91.89 Other specified personal risk factors, not elsewhere classified; R26.81 Unsteadiness on feet; R74.0 Nonspecific elevation of levels of transaminase and lactic acid dehydrogenase [LDH]; R73.9 Hyperglycemia, unspecified
CPT/HCPCS: 36415; 80307; 80345; 80346; 80361; 83690; 83735; 84443; 85025; 86580; 86592; 86705; 86803; 87340; 87806; G0480; J8499